=== PATIENT | female | born 1990 | race Caucasian/White ===

== ENCOUNTER 2017-03-07 10:19 | Emergency (ER) | payer BC ==
[2017-03-07] MEDS ORDERED: NO MEDICATIONS (10:22)
== END 2017-03-07 10:48 | disposition home or self-care (01) ==
LOC: SED 10:19
DX: L25.5 Unspecified contact dermatitis due to plants, except food (principal); R03.0 Elevated blood-pressure reading, without diagnosis of hypertension; Z90.49 Acquired absence of other specified parts of digestive tract
CPT/HCPCS: 99282